=== PATIENT | male | born 1945 | race Caucasian/White ===

== ENCOUNTER 2016-06-07 08:13 | Observation (INO) | payer OTHER ==
--- NOTE | 2016-06-04 16:02 | DIAGNOSTIC IMAGING REPORT ---
TWO VIEW CHEST CLINICAL HISTORY: Atypical chest pain. FINDINGS: PA and lateral chest radiographs are compared to study dated 03/13/2013. The heart is top normal for projection. The mediastinal contour is within normal limits. The pulmonary vasculature is noncongested. There is left basilar atelectasis. The lungs and pleural spaces are otherwise clear. There is no pneumothorax. The bony thorax appears intact. Fusion hardware is noted in the lower cervical spine. IMPRESSION: Left basilar atelectasis with no acute cardiopulmonary abnormality. Electronically signed by: Terrell King M.D. 06/04/2016 4:00 PM Dictated Date/Time: 06/04/2016 3:59 PM
[2016-06-04 16:20] LABS: HEMATOCRIT 44.2 % (42-52); MEAN CELL VOLUME 91.3 fL (80-100); MEAN CORPUSCULAR HEMOGLOBIN 33.1 pg (25-34); MEAN CORPUSCULAR HGB CONC 36.2 g/dl (32-36); MEAN PLATELET VOLUME 9.9 fL (7.4-10.4); PLATELET COUNT 225 K/uL (130-400); RED BLOOD COUNT 4.84 M/uL (4.7-6.1)
[2016-06-04 16:27] LABS: PROTHROMBIN TIME (PATIENT) 10.5 SECONDS (9.0-12.0)
[2016-06-04 16:49] LABS: BLOOD UREA NITROGEN 17 mg/dl (7-18); BUN/CREATININE RATIO 13.2 (10-20); CALCIUM 9.2 mg/dl (8.5-10.1); CARBON DIOXIDE 23 mmol/L (21-32); CHLORIDE 106 mmol/L (98-107); GLUCOSE 101 mg/dl (70-99); POTASSIUM 4.2 mmol/L (3.5-5.1); SODIUM 139 mmol/L (136-145)
[~2016-06-07] VITALS: Ht 185.4 cm; Wt 120.2 kg
[2016-06-07] VITALS (8 sets, daily range): BP systolic 133–163; BP diastolic 74–90; PULSE 78–85; TEMP 36.5–36.7; O2SAT 93–97; Ht 185.4 cm; Wt 120.2 kg
[~2016-06-07 08:13] MED LIST: ASPEC325 PO; ASPI81TA28 PO; ATEN50TA8 PO; DIAZ-165 PO; FEXO1TAB49 PO; FLUT0.15; LISI-725 PO; MECL1TAB42 PO; METR0.754 TOP; MULT-506 PO; NTRGSL/4 UT; ONDA4TAB46 PO; SALI0.6510; TRAMTAB5 PO
[2016-06-07] MEDS ORDERED: HEPARIN SOD (PORCINE) 1000 UNIT/ML 10 ML VIAL ONE ×2 (09:03→10:34)
[2016-06-07] MEDS ORDERED: NiCARDipine HCL INJ 2.5 MG/ML 10 ML AMP ONE (09:03)
[2016-06-07] MEDS ORDERED: NITROGLYCERIN/D5W 100MCG/ML 20ML SYR ONE (09:04)
[2016-06-07] MEDS ORDERED: DiphenhydrAMINE HCL 50 MG/ML VIAL ONE (09:04)
[2016-06-07] MEDS ORDERED: FENTANYL CITRATE INJ 50 MCG/1 ML 2 ML VIAL ONE ×2 (09:04→11:00)
[2016-06-07] MEDS ORDERED: MIDAZOLAM HCL 1 MG/ML 2ML VIAL ONE ×2 (09:04→11:00)
[2016-06-07] MEDS ORDERED: METHYLPREDNISOLONE 125 MG VIAL ONE (09:17)
--- NOTE | 2016-06-07 09:38 | History & Physical Bridge Note ---
H&P Re-Evaluation Bridge Note: I have examined the patient, reviewed the History & Physical and in the interval since the performance of the History & Physical I have noted the following changes of clinical significance: No changes noted
--- NOTE | 2016-06-07 09:38 | Procedure Note ---
Pre-Mod Sedation Assessment General Date of Moderate Sedation: Jun 07, 2016. Vital Signs: Vital Signs Past 12 Hours Date Time Temp Pulse Resp B/P Pulse Ox O2 Delivery O2 Flow Rate FiO2 06/07/16 08:30 36.5 81 16 159/90 97 Room Air Review Cardiovascular: regular rate, rhythm, no murmur Abdomen: non tender, soft Lungs: lungs clear Pre-Sedation Airway Assessment Oral Cavity: Dentures Short Thick Neck: No Hx of Sleep Apnea: No Smoking Status: Never Smoker Procedure Planning Contraindications-for Mod Sed: None Yes Notes The planned sedation has been discussed with the patient and consent obtained. I have identified the patient, determined the appropriateness of sedation and have assessed the patient immediately prior to the procedure. All medicine(s) and interventions are by my order.
[2016-06-07] MEDS ORDERED: EPTIFIBATIDE 2 MG/ML 10 ML VIAL IV ONE ×2 (10:17)
[2016-06-07] MEDS ORDERED: EPTIFIBATIDE 0.75 MG/ML 75MG VIAL IV ONE (10:17)
--- NOTE | 2016-06-07 10:35 | Procedure Note ---
Post-Mod Sedation Assessment General Date of Moderate Sedation Jun 07, 2016. Vital Signs: Vital Signs Past 12 Hours Date Time Temp Pulse Resp B/P Pulse Ox O2 Delivery O2 Flow Rate FiO2 06/07/16 08:30 36.5 81 16 159/90 97 Room Air Review - Discharge Criteria Vital Signs Stable: Yes Alert/Oriented/Conversant: Yes Returned to Baseline Mental St: Yes Nausea Absent/Minimal: Yes Pain/Discomfort/Absent/Minimal: Yes Normal/Baseline Respirations: Yes Active Bleeding?: No
--- NOTE | 2016-06-07 10:46 | Cardiac Catheterization ---
Procedure Note Procedure Date Jun 07, 2016. Pre-Procedure Diagnosis Angina, Positive Stress Test AUC Score 9 Post-Procedure Diagnosis Severe CAD, Normal Intracardiac Pressures Procedure(s) Performed Coronary Angiography, Left Heart Cath Parts Counter Specialist Dr. Rucker [employer] Lab Technician(s) [place] Estimated Blood Loss < 20 ml Medication(s) Fentanyl, Heparin, Nicardipine, Versed, Lidocaine 1% Summary of Findings Coronary angiography: 1. Left main coronary artery: The LMCA is short. No significant CAD noted within the LM CA. 2. Left anterior descending: The LAD is large and wraps around the apex. Proximal LAD diffuse 30%. Mid LAD 40%. Small diagonal branch without significant CAD. 3. Circumflex: The circumflex is large and codominant. No significant CAD noted within the circumflex proper, small OM1, small OM2. There is a very large caliber OM3 with proximal 90% stenosis followed by diffuse 50% stenotic area. Circumflex PDA mid 40%. 4. Right coronary artery: The RCA is large and codominant. Proximal RCA 30%. RCA PDA and small caliber posterior lateral vessel without significant CAD. Left heart catheterization: 1. No left ventriculography performed. 2. No significant aortic stenosis. 3. Normal left ventricular end-diastolic pressure; 12 mmHg. Procedural notes: 1. Procedure performed via the right radial artery without complications. Impression: 1. Severe CAD involving large OM3 vessel. 2. Nonobstructive CAD involving proximal to mid LAD, circumflex PDA, and proximal RCA. 3. No aortic stenosis. 4. Normal LVEDP. Plan: 1. Interventional Cardiology to evaluate for PCI of large OM3. 2. Patient intolerant to statin therapy per records and PCP, Dr. Russo. Hemodynamics Rest Ao: 111/68 Final Ao: 115/66 LV: 108/3 LVEDP 12 mmHg Recommendations PCI without planned CABG Specimens None Radiation Exposure (mGy) 1354 mGy. Fluoro time 2.3 min. Contrast (mls) 80 ml Procedural Complication(s) None Disposition Metallographer Holding/Recovery ACC Data Cardiac Status Clinical evaluation leading to the procedure CAD Presntation: Stable angina, Positive Stress Test Anginal Classification: CCS III Heart Failure: No Cardiogenic Shock w/in 24Hrs: No Cardiac Arrest w/in 24Hrs: No Imaging studies past 6 months: No Stress studies past 6 months: Yes Standard Exercise Stress Test: Yes - Positive, Risk/Extent of Ischemia (High) Stress Echocardiogram: Yes - Positive, Risk/Extent of Ischemia (High) Stress Testing w/SPECT MPI: No Cardiac CTA: No Coronary Anatomy Dominant: Co-dominant Left Main (% Stenosis): Normal LAD (% Stenosis): Proximal (30%), Mid (40%) D1 (% Stenosis): Normal Circumflex (% Stenosis): Normal OM1 (% Stenosis): Normal OM2 (% Stenosis): Normal OM3 (% Stenosis): Proximal (90%), Mid (50%) L PDA (% Stenosis): Mid (40%) RCA (% Stenosis): Proximal (30%) R PDA (% Stenosis): Normal R PL1 (% Stenosis): Normal Left Ventricular Angiography EF (%): n/a Diagnostic Physician's Name: Jean-Claude Rucker MD Status: Elective Closure Device Percutaneous Entry Location: Radial Closure Device: Radial Band Recommendations: PCI without planned CABG
[2016-06-07] MEDS ORDERED: CLOPIDOGREL BISULFATE 300 MG TAB PO ONE (11:42)
[2016-06-07] MEDS ORDERED: NITROGLYCERIN 0.4 MG SL PER TAB CHARGE UT SCH (12:30)
[2016-06-07] MEDS ORDERED: ATROPINE SULFATE 0.1 MG/ML 5ML SYR IV PRN (12:30)
[2016-06-07] MEDS ORDERED: ACETAMINOPHEN 325 MG TAB PO PRN ×2 (12:30)
[2016-06-07] MEDS ORDERED: DIAZEPAM 5MG TAB PO PRN (12:30)
[2016-06-07] MEDS ORDERED: SODIUM CHLORIDE 0.65% NA SOLN 45 ML (OCEAN) PRN (12:30)
[2016-06-07] MEDS ORDERED: NITROGLYCERIN 0.4 MG SL PER TAB CHARGE SL PRN (12:30)
[2016-06-07] MEDS ORDERED: MAGNESIUM HYDROXIDE SUSP 30 ML UDC PO PRN (12:30)
[2016-06-07] MEDS ORDERED: EPTIFIBATIDE BOLUS / DRIP IV ONE (12:30)
[2016-06-07] MEDS ORDERED: POLYETHYLENE (MIRALAX) 17 GM PACK PO PRN (12:30)
[2016-06-07] MEDS ORDERED: FEXOFENADINE HCL 180 MG TAB PO PRN (12:30)
[2016-06-07] MEDS ORDERED: ONDANSETRON 4 MG TAB PO PRN (12:30)
[2016-06-07] MEDS ORDERED: FLUTICASONE PROPIONATE NA SPR 16 GM BTL PRN (12:30)
[2016-06-07] MEDS: SODIUM CHLORIDE 0.9% 1000ML 1,000 ML IV SCH ×2 (12:30→20:30)
--- NOTE | 2016-06-07 12:39 | Procedure Note ---
Post-Mod Sedation Assessment General Date of Moderate Sedation Jun 07, 2016. Vital Signs: Vital Signs Past 12 Hours Date Time Temp Pulse Resp B/P Pulse Ox O2 Delivery O2 Flow Rate FiO2 06/07/16 12:30 80 18 130/85 94 Room Air 06/07/16 12:15 81 16 135/82 95 Room Air 06/07/16 12:00 80 16 138/95 95 Room Air 06/07/16 08:30 36.5 81 16 159/90 97 Room Air Review - Discharge Criteria Vital Signs Stable: Yes Alert/Oriented/Conversant: Yes Returned to Baseline Mental St: Yes Nausea Absent/Minimal: Yes Pain/Discomfort/Absent/Minimal: Yes Normal/Baseline Respirations: Yes Active Bleeding?: No Pt Received D/C Instructions: N/A Prescriptions Given: None Specific Proced. D/C Criteria Distal Pulses Present (Cardiac: Yes Groin site assessed-Card Cath: N/A Voided Prior To Discharge: N/A Discharged Patients Adult Escort/Transportation: N/A
--- NOTE | 2016-06-07 13:02 | Cardiac Catheterization ---
Procedure Note Procedure Date Jun 07, 2016. Pre-Procedure Diagnosis Angina, Positive Stress Test, CAD AUC Score 9 Post-Procedure Diagnosis Successful PCI Procedure(s) Performed Left Heart Cath, Drug Eluting Stent Sed Special Education Teacher Dr. Schumacher Senior Product Development Scientist(s) MANISHA Huitron Estimated Blood Loss 40 ml Medication(s) Clopidogrel (600 mg PO post PCI), Fentanyl, Heparin, Integrilin, Nicardipine ( intra-arterial and intracoronary), Versed, Lidocaine 1% Recommendations Medical therapy and/or Counseling, PCI without planned CABG Specimens None Radiation Exposure (mGy) Total of 6,624 for both diagnostic and PCI procedures Contrast (mls) Total of 330 ml Optiray for both procedures Fluids (cc crystalloids) Total of 200 ml for both procedures Drains None Anesthesia IV versed,fentanyl. Lidocaine 1% for local Procedural Complication(s) None Disposition PCU ACC Data Cardiac Status Clinical evaluation leading to the procedure CAD Presntation: Stable angina, Positive Stress Test Anginal Classification: CCS III Heart Failure: No Cardiogenic Shock w/in 24Hrs: No Cardiac Arrest w/in 24Hrs: No Imaging studies past 6 months: Yes Standard Exercise Stress Test: Yes - Positive, Risk/Extent of Ischemia (High) Stress Echocardiogram: Yes - Positive, Risk/Extent of Ischemia (High) Stress Testing w/SPECT MPI: No Cardiac CTA: No Coronary Anatomy Dominant: Co-dominant (For coronary artery description,please see diagnostic report by Dr. Rucker) Diagnostic Physician's Name: Jean-Claude Rucker MD Status: Elective Closure Device Percutaneous Entry Location: Radial Closure Device: Radial Band Recommendations: Medical therapy and/or Counseling, PCI without planned CABG PCI Indication: Stable Angina, Angina despite med therapy, + Stress Test Lesion Segment Name: Proxiaml left circumflex marginal Culprit Artery: Yes Stenosis Prior to Rx (%): 90-95 Chronic Total Occlusion: No IVUS: No FFR: No Pre-Procedure ROXANA Flow: 3 Previously Treated Lesion: No Lesion Complexity: Non-High/Non-C Lesion Length (mm): 9 Thrombus Present: No Bifurcation Lesion: No Guidewire Across Lesion: Yes Guidewire: Stenosis Post-Procedure (%): 0-10 Post-Procedure ROXANA Flow: 3 Device(s) Deployed: Yes Type of Device(s): Medtronic Resolute Integrity 3 X 15 mm RAMEZ Lesion #2 Segment Name: Mid left circumflex marginal Culprit Artery: Yes Stenosis Prior to Rx (%): 70 Chronic Total Occlusion: No IVUS: No FFR: No Pre-Procedure ROXANA Flow: 3 Lesion Complexity: Non-High/Non-C Lesion Length (mm): 6 Thrombus Present: No Bifurcation Lesion: No Guidewire Across Lesion: Yes Guidewire: Stenosis Post-Procedure (%): 0-10 Post-Procedure ROXANA Flow: 3 Device(s) Deployed: Yes (Danfoss IXA Sensor Technologiestronic Resolute Integrity 3 X 9 mm RAMEZ. Deployed in an overlapping fashion with first stent.) Intraprocedure Events Significant Dissection: No Perforation: No
[2016-06-07 13:37] LABS: HEMATOCRIT 44.7 % (42-52); MEAN CELL VOLUME 91.4 fL (80-100); MEAN CORPUSCULAR HEMOGLOBIN 32.9 pg (25-34); RED BLOOD COUNT 4.89 M/uL (4.7-6.1); WHITE BLOOD COUNT 17.91 K/uL (4.8-10.8)
[2016-06-07] MEDS ORDERED: IV FLUIDS COMPLETED PRN (13:45)
[2016-06-07 13:58] LABS: MEAN PLATELET VOLUME 9.9 fL (7.4-10.4); PLATELET COUNT 98 K/uL (130-400)
[2016-06-07 13:59] LABS: BASO % 0.1 %; BASO ABS # 0.01 K/uL (0-0.2); COMPLETE YES; IG% 0.4 %; LYMPH % 5.6 %; LYMPH ABS # 1.01 K/uL (1.2-3.4); MONO % 0.3 %; NEUT % 93.6 %; PLT ESTIMATE DECREASED
[2016-06-07] MEDS ORDERED: NURSING VERBAL MED ORDER ONE (16:15)
[2016-06-07] MEDS: TRAMADOL/ACETAMINOPHEN 37.5/325MG TAB PO PRN (17:42)
[2016-06-07] MEDS: ALUMINUM/MAGNESIUM/SIMETH (MAALOX MAX) 30 ML UDC PO PRN (19:52)
[2016-06-07] MEDS ORDERED: LISINOPRIL 20 MG TAB PO STA (21:12)
[2016-06-07] MEDS ORDERED: ASPIRIN 81 MG ECTAB PO STA (21:12)
[2016-06-07] MEDS ORDERED: RANITIDINE HCL 150 MG TAB PO STA (21:12)
[2016-06-08 03:44] VITALS: BP 130/73; PULSE 70; TEMP 36.8; O2SAT 93
[2016-06-08 04:00] VITALS: O2SAT 93
[2016-06-08] MEDS: SODIUM CHLORIDE 0.9% 1000ML 1,000 ML IV SCH (04:12)
[2016-06-08 07:23] LABS: BASO % 0.1 %; BASO ABS # 0.02 K/uL (0-0.2); COMPLETE YES; EOS % 0.2 %; HEMATOCRIT 39.9 % (42-52); IG% 0.4 %; LYMPH % 11.8 %; LYMPH ABS # 2.24 K/uL (1.2-3.4); MEAN CELL VOLUME 92.1 fL (80-100); MEAN CORPUSCULAR HEMOGLOBIN 33.5 pg (25-34); MEAN CORPUSCULAR HGB CONC 36.3 g/dl (32-36); MONO % 6.2 %; NEUT % 81.3 %; PLATELET COUNT 165 K/uL (130-400); RED BLOOD COUNT 4.33 M/uL (4.7-6.1); WHITE BLOOD COUNT 19.02 K/uL (4.8-10.8)
[2016-06-08] MEDS: ALUMINUM/MAGNESIUM/SIMETH (MAALOX MAX) 30 ML UDC PO PRN (07:23)
[2016-06-08 07:33] LABS: BUN/CREATININE RATIO 16.2 (10-20); CALCIUM 8.6 mg/dl (8.5-10.1); CREATININE 1.1 mg/dl (0.60-1.40); POTASSIUM 4.5 mmol/L (3.5-5.1)
[2016-06-08 08:17] VITALS: BP 134/83; PULSE 76; TEMP 36.7; O2SAT 97
[2016-06-08] MEDS ORDERED: CLOPIDOGREL BISULFATE 75 MG TAB PO SCH (09:00)
[2016-06-08] MEDS ORDERED: LISINOPRIL 20 MG TAB PO SCH (09:00)
[2016-06-08] MEDS ORDERED: MECLIZINE HCL 25 MG TAB PO PRN (09:00)
[2016-06-08] MEDS ORDERED: ASPIRIN 81 MG ECTAB PO SCH ×2 (09:00)
--- NOTE | 2016-06-08 10:11 | Discharge Instructions ---
Discharge Instructions Visit Reason for Visit: Cardiac catheterization for angina and abnormal stress echo. Discharge Discharge Diagnosis / Problem: Severe coronary artery disease. Stents placed in obtuse marginal 3 vessel. Discharge Goals Goal(s): Diagnostic testing, Therapeutic intervention Activity Recommendations Activity Limitations: per Instructions/Follow-up section Anesthesia . Post Anesthesia Instructions: If you have had General Anesthesia or IV Sedation: * Do not drive today. * Resume driving when surgeon permits. * Do not make important decisions or sign legal documents today. * Call surgeon for: 1. Temperature elevations greater than 101 degrees F. 2. Uncontrollable pain. 3. Excessive bleeding. 4. Persistent nausea and vomiting. 5. Medication intolerance (nausea, vomiting or rash). * For nausea and vomiting use only clear liquids such as: tea, soda, bouillon until nausea subsides, then gradually increase diet as tolerated. * If you have any concerns or questions, call your surgeon's office. If physician is unavailable and it is an emergency, call 911 or go to the nearest emergency room. . Instructions / Follow-Up Instructions / Follow-Up Follow up appointment: 1. Dr. Rucker (cardiology clinic) on Tuesday, June 30, 2016 at 0915 AM. Please be there 15 minutes early to review medications and history with nursing staff. ACTIVITY RECOMMENDATIONS: Excess manipulation of the wrist should be avoided for the next 24-48 hours. * No lifting over 2 pounds (approximately a 1/2 gallon of milk) with the utilized arm for 24 hours. * No strenuous activity such as bowling or tennis for 3 days. * Keep the site of the procedure covered with a bandage for 24 hours. *You may shower the day after the procedure. Do not take a tub bath or submerge the puncture site in water for the next 3 days. *Do not operate any motorized equipment for 3 days. SPECIAL CARE INSTRUCTIONS: The site may be slightly bruised and sore following your procedure. Should any of the following occur, contact the DrFarhad who performed your procedure. 1. Redness/inflammation, swelling, chills, or fever, or colored drainage at procedure site within 3-7 days after your procedure. 2. Coldness, discoloration, ongoing numbness, severe pain, or swelling. Expect mild tingling of hand and tenderness at the puncture site for up to three days. If this persists beyond three days, or other symptoms develop, notify the Dr. who performed your procedure. BLEEDING: If the procedure site on your wrist begins to bleed, do not panic 1. Place 1 or 2 fingers firmly just slightly above the insertion site to stop the bleeding. You may be able to feel your pulse as you hold pressure. 2. Lift your finger after 5 minutes to see if the bleeding has stopped. 3. Once the bleeding has stopped, gently wipe the wrist area clean with a bandage. * If the bleeding from your wrist does not stop after 10 minutes, or if there is a large amount of bleeding or spurting, call 911 (do not drive yourself to the hospital). SKIN IRRITATION: * You may experience some redness and/or swelling in the area where radiation was administered. If any skin irritation occurs, please contact your family physician. FOLLOW UP VISIT: Keep any scheduled doctor appointments. Diet Recommendations Recommended Home Diet: low cholesterol Procedures Procedures Performed: Coronary angiography and PCI (stent placement). Pending Studies Studies pending at discharge: no Medical Emergencies . Who to Call and When: Medical Emergencies: If at any time you feel your situation is an emergency, please call 911 immediately. . Non-Emergent Contact Non-Emergency issues call your: Zumba Instructor . Past History Medical & Surgical History: (1) CAD (coronary artery disease), [place] coronary artery (2) S/P coronary artery stent placement . "Provider Documentation" section prepared by Jean-Claude Nava.
[2016-06-08] MEDS ORDERED: PLV75 PO (10:14)
[2016-06-08 10:17] VITALS: BP 134/83; PULSE 76; TEMP 36.7; O2SAT 97
[2016-06-08] MEDS: TRAMADOL/ACETAMINOPHEN 37.5/325MG TAB PO PRN (10:44)
--- NOTE | 2016-06-08 13:53 | DISCHARGE SUMMARY ---
TIME: 12:32 p.m. DATE OF OBSERVATION: 06/07/2016 DATE OF DISCHARGE: 06/08/2016 ADMITTING DIAGNOSES: 1. Abnormal stress echo. 2. Angina. DISCHARGE DIAGNOSIS: Severe coronary artery disease, status post percutaneous coronary intervention of OM3. BRIEF HISTORY OF PRESENT ILLNESS: Mr. Lou is a 70-year-old gentleman who had an abnormal stress echo, which was ordered for anginal symptoms by his PCP Dr. Russo. He presented to [facility] on 06/07/2016 for cardiac catheterization. BRIEF HOSPITAL COURSE: Coronary angiography demonstrated severe OM3 stenosis of approximately 90%-95%. He underwent stent placement in the proximal OM3 with 3 x 15 mm Resolute drug-eluting stent. In the mid OM3 he underwent 3 x9 mm Resolute drug-eluting stent in an overlapping fashion with the proximal stent. He tolerated the procedure well. He was admitted for overnight observation. He did develop thrombocytopenia when his platelet level dropped from 225 down to 98 while on Integrilin after a short period of time. Integrilin was promptly discontinued by Dr. Schumacher, the director of restaurants. His platelet count recovered up to 165 the morning of discharge. He did develop leukocytosis throughout his hospital stay as he was treated with prednisone prior to the procedure and Solu-Medrol at the onset of the procedure due to an IV CONTRAST DYE ALLERGY. He complained of left axillary pain both overnight and in the morning. It was present for several hours and he had normal ECG without ST or T-wave changes. It did not worsen with exertion and appeared to be positional. If he lifted his left arm over his head, the pain improved or resolved. When he lay on his right side, the pain resolved. It returned when laying on his left side. He had no further anginal symptoms. He denied shortness of breath, syncope, near syncope, palpitations or bleeding. PHYSICAL EXAMINATION: VITAL SIGNS: On the day of discharge demonstrated a temperature of 36.7 degrees, heart rate 76 beats per minute, respiration rate 18, blood pressure 134/83 mmHg and oxygen saturation 97% on room air. GENERAL: In no acute distress. Alert and oriented. NECK: No JVD. CARDIAC EXAMINATION: No ventricular heave. Regular. Normal S1 and S2. No audible murmurs, rubs or gallops. LUNGS: Clear to auscultation bilaterally without wheezes, rales or rhonchi. ABDOMEN: Soft, nontender, nondistended. Normoactive bowel sounds. EXTREMITIES: Right radial cath site is clean, dry and intact without erythema or discharge. 2+ right radial pulse. Trace bilateral lower extremity edema. No cyanosis. PSYCHIATRIC: Affect appears appropriate. LABORATORY DATA: Demonstrated a WBC of 19, hemoglobin 14.5, platelets 165. Sodium 140, potassium 4.5, BUN 18, creatinine 1.1, glucose 119. Telemetry was personally reviewed. No arrhythmia. ECG personally reviewed, performed at 10:12 a.m. on 06/08/2016, normal sinus rhythm at 68 beats per minute. No significant ST/T-wave abnormality. MEDICATIONS: At the time of discharge include 1. Aspirin 81 mg daily. 2. Plavix 75 mg daily. 3. Atenolol 50 mg daily. 4. Lisinopril 20 mg daily. 5. Nitroglycerin 0.4 mg sublingual p.r.n. angina. 6. Zofran p.r.n. 7. Fluticasone nasal spray p.r.n. 8. Valium 5 mg q. 4 hours as needed for anxiety (home medication). 9. Nadiya p.r.n. 10. Meclizine p.r.n. 11. Topical metronidazole p.r.n. FOLLOWUP APPOINTMENTS: 1. Cardiology followup is scheduled for June 30 at 09:[address] Rucker. This day was provided to him. PRESCRIPTIONS: A prescription for Plavix was sent to his pharmacy and he was notified of this. He was made aware to remain on aspirin 81 mg daily indefinitely and Plavix for at least 6 months, but preferably a year or longer. ASSESSMENT AND PLAN: 1. Coronary artery disease, status post OM3 percutaneous coronary intervention: No further angina. Continue antiplatelet therapy as described above. He is statin intolerant despite several doses of multiple medications in the past as per Dr. Russo. Recommend Mediterranean diet. Continue beta-lorraine and LEVI inhibitor. 2. Left axillary pain: Not consistent with ischemic heart disease. Appears to be somewhat positional. There was also some concern for acid reflux overnight. He plans on obtaining Prilosec OTC as instructed by his primary care physician, Dr. Russo. 3. Hypertension: Blood pressure acceptable. Continue outpatient regimen. 4. Disposition: Followup as noted above.
== END 2016-06-08 10:56 | disposition home or self-care (01) ==
LOC: C.CATH 08:13 → C.2T 12:37
PROVIDERS: ADMIT Internal Medicine Cardiovascular Disease; ATTEND Internal Medicine Cardiovascular Disease
DX: I25.10 Atherosclerotic heart disease of native coronary artery without angina pectoris (principal); I10 Essential (primary) hypertension; E78.00 Pure hypercholesterolemia, unspecified; F17.210 Nicotine dependence, cigarettes, uncomplicated; D69.6 Thrombocytopenia, unspecified; K21.9 Gastro-esophageal reflux disease without esophagitis; R90.81 Abnormal echoencephalogram; Z82.49 Family history of ischemic heart disease and other diseases of the circulatory system; Z83.3 Family history of diabetes mellitus; Z80.42 Family history of malignant neoplasm of prostate; Z79.82 Long term (current) use of aspirin; Z79.899 Other long term (current) drug therapy
CPT/HCPCS: 93458; C9600

== ENCOUNTER → 2016-11-15 | Outpatient (CLI) | payer OTHER ==
[~2016-11-15] MED LIST changes: -ASPEC325 PO; -MULT-506 PO; +OXYC-57 PO; +PLV75 PO; +PRED50TA PO
[2016-11-15 10:07] LABS: BASO % 0.5 %; BASO ABS # 0.03 K/uL (0-0.2); COMPLETE YES; EOS % 6.3 %; HEMATOCRIT 43.4 % (42-52); IG% 0.4 %; LYMPH % 34.6 %; LYMPH ABS # 1.92 K/uL (1.2-3.4); MEAN CELL VOLUME 93.9 fL (80-100); MEAN CORPUSCULAR HEMOGLOBIN 33.3 pg (25-34); MEAN CORPUSCULAR HGB CONC 35.5 g/dl (32-36); MEAN PLATELET VOLUME 9.5 fL (7.4-10.4); MONO % 7.9 %; NEUT % 50.3 %; PLATELET COUNT 202 K/uL (130-400); RED BLOOD COUNT 4.62 M/uL (4.7-6.1); WHITE BLOOD COUNT 5.55 K/uL (4.8-10.8)
[2016-11-15 10:38] LABS: BLOOD UREA NITROGEN 16 mg/dl (7-18); BUN/CREATININE RATIO 14.1 (10-20); CALCIUM 9.1 mg/dl (8.5-10.1); CARBON DIOXIDE 28 mmol/L (21-32); CHLORIDE 110 mmol/L (98-107); CHOLESTEROL 182 mg/dl (0-200); GLUCOSE 99 mg/dl (70-99); POTASSIUM 4.8 mmol/L (3.5-5.1); SODIUM 142 mmol/L (136-145); TRIGLYCERIDES 135 mg/dl (0-150); URIC ACID 6.9 mg/dl (2.6-7.2); VERY LOW DENSITY LIPOPROT CALC 27 mg/dl
[2016-11-15 10:48] LABS: CHOLESTEROL/HDL RATIO 6.1; HDL CHOLESTEROL 30 mg/dl; LDL CHOLESTEROL CALCULATED 125 mg/dl
[2016-11-15 13:19] LABS: ESTIMATED AVERAGE GLUCOSE 117 mg/dl; HA1C FLAG Normal (Normal)
--- NOTE | 2016-11-19 13:11 | CODING QUERY MEDICAL NECESSITY ---
SUPPORTING DIAGNOSIS NEEDED Dr. Russo, A supporting diagnosis is required for the test/procedure performed on this patient in order for us to be reimbursed by the patient's insurance. Please provide a supporting diagnosis for the following test/procedure listed below next to the test name along with your signature. *If there is no additional diagnosis for this patient that would support the following test/procedure please document that below next to the test/procedure. Test(s)/Procedure(s) that require a supporting diagnosis: * 10638 GLYCATED HEMOGLOBIN DIAGNOSIS: * 24103 PSA DIAGNOSIS: DATE OF SERVICE: 11/15/16 Provider Signature: Date: Thank you Syed Bennett [facility] Once completed, please kindly fax back to [phone] For questions please call [phone]
== END | disposition home or self-care (01) ==
LOC: C.LAB 09:28
PROVIDERS: ATTEND Internal Medicine
DX: Z00.00 Encounter for general adult medical examination without abnormal findings (principal); E78.00 Pure hypercholesterolemia, unspecified

== ENCOUNTER 2017-01-23 10:16 | Emergency (ER) | payer OTHER ==
[~2017-01-23] VITALS: Ht 182.9 cm; Wt 121.5 kg
[~2017-01-23 10:16] MED LIST changes: -OXYC-57 PO; -PRED50TA PO
[2017-01-23 10:35] VITALS: TEMP 36.9; Ht 182.9 cm; Wt 121.5 kg
[2017-01-23 11:39] LABS: BASO % 0.5 %; BASO ABS # 0.03 K/uL (0-0.2); COMPLETE YES; EOS % 8.3 %; IG% 0.4 %; LYMPH % 31.4 %; LYMPH ABS # 1.74 K/uL (1.2-3.4); MEAN CELL VOLUME 93.3 fL (80-100); MEAN CORPUSCULAR HEMOGLOBIN 32.5 pg (25-34); MEAN CORPUSCULAR HGB CONC 34.9 g/dl (32-36); MEAN PLATELET VOLUME 9.5 fL (7.4-10.4); MONO % 11.6 %; NEUT % 47.8 %; PLATELET COUNT 176 K/uL (130-400); RED BLOOD COUNT 4.61 M/uL (4.7-6.1); WHITE BLOOD COUNT 5.54 K/uL (4.8-10.8)
--- NOTE | 2017-01-23 11:42 | EMERGENCY ROOM VISIT NOTE ---
History First contact with patient: 11:02 Chief Complaint: KNEEPAIN Stated Complaint: REDNESS,EDEMA,PAIN IN R KNEE X1 WEEK History of Present Illness The patient is a 71 year old male who presents to the Emergency Room with complaints of right knee pain and swelling that has gotten progressively worse over the last week. The patient denies any injury. He denies any fever or chills. He does note that the knee feels hot. He has not taken anything for pain. The pain is worse with weightbearing. He denies any known insect bites, but [place] in [place] He also has a history of gout. He usually gets gout in his big toe. Review of Systems 10 system review performed and negative unless noted in HPI or below Past Medical/Surgical History Medical Problems: (1) CAD (coronary artery disease), [place] coronary artery Surgical Problems: (1) S/P coronary artery stent placement Social History Smoking Status: Never Smoker Marital Status: Housing Status: lives with significant other Current/Historical Medications Scheduled Aspirin (Aspirin Ec), 81 MG PO HS Atenolol (Tenormin), 50 MG PO HS Clopidogrel Bisulfate (Clopidogrel), 75 MG PO QAM Lisinopril (Zestril), 20 MG PO DAILY Metronidazole (Topical) (Metrocream), 1 APPLN TOP DAILY Nitroglycerin (Nitrostat), 0.4 MG UT PRN Prednisone (Prednisone), 50 MG PO DAILY Scheduled PRN Fexofenadine Hcl (Nadiya Allergy), 1 TAB PO DAILY PRN for ALLERGIC REACTION Fluticasone Propionate (Nasal) (Flonase Allergy Relief), for ALLERGIC REACTION Meclizine Hcl (Meclizine Hcl), 1 TAB PO TID PRN for Documentation Oxycodone/Acetaminophen 5MG/325MG (Percocet 5MG/325MG), 1-2 TABS PO Q4H PRN for Pain Tramadol/Acetaminophen (Ultracet), 1 TAB PO Q6H PRN for Pain Miscellaneous Medications Saline (Jerauld Nasal [place]) Physical Exam Vital Signs Date Time Temp Pulse Resp B/P (MAP) Pulse Ox O2 Delivery O2 Flow Rate FiO2 01/23/17 13:53 53 18 147/95 94 Room Air 01/23/17 10:35 36.9 57 18 147/95 99 Room Air Physical Exam VITALS: Vitals are noted on the nurse's note and reviewed by myself. Vital signs stable. GENERAL: 71-year-old male, in no acute distress, nondiaphoretic, well-developed well-nourished. SKIN: The skin was without rashes HEAD: Normocephalic atraumatic. MUSCULOSKELETAL: RLE: Significant swelling noted over the right knee. Warmth also noted. No erythema. The skin is intact. Full range of motion. No ligamentous instability appreciated. Distal pulses intact. No pain in the calf. NEURO: Patient was alert and oriented to person place and time. Normal sensation to touch. No focal neurological deficits. Medical Decision & Procedures ER Provider Diagnostic Interpretation: Right knee x-ray IMPRESSION: Possible fracture at the base of the prominent enthesophyte at the origin of the patellar tendon. Correlate for point tenderness. CT RLE IMPRESSION: Findings suggestive of old fragmentation/old fracture of the prominent enthesophyte at the origin of the patellar tendon. Prepatellar infiltration and laminar fluid could suggest prepatellar bursitis. Laboratory Results 01/23/17 11:25 Red Blood Count 4.61, Mean Corpuscular Volume 93.3, Mean Corpuscular Hemoglobin 32.5, Mean Corpuscular Hemoglobin Concent 34.9, Mean Platelet Volume 9.5, Neutrophils (%) (Auto) 47.8, Lymphocytes (%) (Auto) 31.4, Monocytes (%) (Auto) 11.6, Eosinophils (%) (Auto) 8.3, Basophils (%) (Auto) 0.5, Neutrophils # (Auto ) 2.65, Lymphocytes # (Auto) 1.74, Monocytes # (Auto) 0.64, Eosinophils # (Auto ) 0.46, Basophils # (Auto) 0.03 01/23/17 11:25 Test 01/23/17 11:25 White Blood Count 5.54 K/uL (4.8-10.8) Red Blood Count 4.61 M/uL (4.7-6.1) Hemoglobin 15.0 g/dL (14.0-18.0) Hematocrit 43.0 % (42-52) Mean Corpuscular Volume 93.3 fL (80-100) Mean Corpuscular Hemoglobin 32.5 pg (25-34) Mean Corpuscular Hemoglobin Concent 34.9 g/dl (32-36) Platelet Count 176 K/uL (130-400) Mean Platelet Volume 9.5 fL (7.4-10.4) Neutrophils (%) (Auto) 47.8 % Lymphocytes (%) (Auto) 31.4 % Monocytes (%) (Auto) 11.6 % Eosinophils (%) (Auto) 8.3 % Basophils (%) (Auto) 0.5 % Neutrophils # (Auto) 2.65 K/uL (1.4-6.5) Lymphocytes # (Auto) 1.74 K/uL (1.2-3.4) Monocytes # (Auto) 0.64 K/uL (0.11-0.59) Eosinophils # (Auto) 0.46 K/uL (0-0.5) Basophils # (Auto) 0.03 K/uL (0-0.2) RDW Standard Deviation 43.7 fL (36.4-46.3) RDW Coefficient of Variation 12.8 % (11.5-14.5) Immature Granulocyte % (Auto) 0.4 % Immature Granulocyte # (Auto) 0.02 K/uL (0.00-0.02) Erythrocyte Sedimentation Rate 4 mm/hr (0-14) Anion Gap 6.0 mmol/L (3-11) Est Creatinine Clear Calc Drug Dose 93.8 ml/min Estimated GFR () 88.6 Estimated GFR (Non- 76.5 BUN/Creatinine Ratio 15.1 (10-20) Uric Acid 7.2 mg/dl (2.6-7.2) Calcium Level 9.2 mg/dl (8.5-10.1) Total Bilirubin 0.4 mg/dl (0.2-1) Aspartate Amino Transf (AST/SGOT) 21 U/L (15-37) Alanine Aminotransferase (ALT/SGPT) 29 U/L (12-78) Alkaline Phosphatase 90 U/L (45-117) C-Reactive Protein 0.53 mg/dl (0-0.29) Total Protein 7.2 gm/dl (6.4-8.2) Albumin 3.7 gm/dl (3.4-5.0) Globulin 3.5 gm/dl (2.5-4.0) Albumin/Globulin Ratio 1.1 (0.9-2) Lyme Disease IgG Antibody NEG (NEG) Lyme Disease IgM Antibody NEG (NEG) Medications Administered Medications (Trade) Dose Ordered Sig/Jordan Route Start Time Stop Time Status Last Admin Dose Admin Prednisone (PredniSONE TAB) 60 mg NOW STAT PO 01/23/17 13:44 01/23/17 13:45 DC 01/23/17 13:53 60 MG ED Course Patient was seen and examined Vital signs including blood pressure were reviewed medications list was verified with patient Labs were obtained, and a saline lock was established The patient declined pain medication. Imaging was performed and reviewed. The findings were discussed with patient. He voiced understanding. The patient was also seen by my supervising physician, Dr. Shirley I reviewed discharge instructions the patient. They voiced understanding and had no further questions. Medical Decision Differential diagnosis: Septic knee, disseminated Lyme disease, hemarthrosis, ligamentous injury, traumatic bursitis, gout, This patient is a 71-year-old male that presented to the emergency department with complaints of right knee swelling and pain. He had no feverish symptoms. No trauma. X-ray showed a possible fracture at the insertion of the patellar tendon. For this reason, CT was ordered. CT is consistent with bursitis. I do not suspect an infectious etiology as the patient is afebrile with no leukocytosis. The patient denies any injury. The patient does have a history of gout. It is possible that this is a gouty bursitis. The patient was treated with steroids. He was also given a short course of narcotics. The patient was instructed to follow-up with orthopedics. This chart was completed in part utilizing [employer] Speech Voice Recognition software. Attempts were made to minimize the grammatical errors, random word insertions, pronoun errors and incomplete sentences. Any formal questions or concerns about the content, text or information contained within the body of this dictation should be directly addressed to the provider for clarification. Medication Reconcilliation Current Medication List: was personally reviewed by me Blood Pressure Screening Patient's blood pressure: Elevated blood pressure Blood pressure disposition: Did not require urgent referral Impression Primary Impression: Bursitis Departure Information Dispostion Home / Self-Care Condition GOOD Prescriptions Oxycodone/Acetaminophen 5MG/325MG (PERCOCET 5MG/325MG) Tab 1-2 TABS PO Q4H Y for Pain, #15 TAB For Initial Treatment Prov: Rafia Davis PA-C 01/23/17 Prednisone (Prednisone) 50 Mg Tab 50 MG PO DAILY for 4 Days, #4 TAB Prov: Rafia Davis PA-C 01/23/17 Referrals Cedrick Russo M.D. (PCP) Patient Instructions Bursitis, My [facility] Additional Instructions You had been treated in the emergency department for right knee pain and swelling. It appears that you have a bursitis that was noted on the CAT scan. Please take the entire course of prednisone. Take this medication with food. Ibuprofen 600 mg every 6 hours Percocet 1-2 tabs every 4 hours for severe pain. Do not drink alcohol or drive while taking this medication. This may be taken with ibuprofen, but avoid Tylenol. This may cause constipation. Please take a stool softener while on Percocet. Please call the orthopedic doctor tomorrow for a follow-up appointment Please watch for worsening symptoms such as increased redness, swelling, pain or fever. Please return to the emergency department if any of these occur.
--- NOTE | 2017-01-23 11:50 | DIAGNOSTIC IMAGING REPORT ---
R KNEE 3 VIEWS CLINICAL HISTORY: 71 years-old Male presenting with R knee swelling no injury. TECHNIQUE: Frontal, lateral, and sunrise views of the right knee were obtained. COMPARISON: None. FINDINGS: Tricompartmental degenerative change. Prominent enthesophytes at the insertion of the quadriceps tendon and origin of the patellar tendon. Irregularity and possible fracture of the base of the patellar enthesophyte noted at the inferior pole the patella. No other acute fracture. No malalignment. No patellar subluxation. No large knee joint effusion. IMPRESSION: Possible fracture at the base of the prominent enthesophyte at the origin of the patellar tendon. Correlate for point tenderness. Electronically signed by: Robin Bhandari M.D. 01/23/2017 11:49 AM Dictated Date/Time: 01/23/2017 11:44 AM
[2017-01-23 12:02] LABS: BUN/CREATININE RATIO 15.1 (10-20); C-REACTIVE PROTEIN 0.53 mg/dl (0-0.29); CALCIUM 9.2 mg/dl (8.5-10.1); POTASSIUM 4.3 mmol/L (3.5-5.1); URIC ACID 7.2 mg/dl (2.6-7.2)
[2017-01-23 12:03] LABS: ALB/GLOB RATIO 1.1 (0.9-2)
[2017-01-23 12:44] LABS: LYME DISEASE AB IGG NEG (NEG)
[2017-01-23 12:45] LABS: LYME DISEASE AB IGM NEG (NEG)
--- NOTE | 2017-01-23 13:23 | EMERGENCY ROOM VISIT NOTE ---
ED Visit Note First contact with patient: 11:02 71-year-old male with right knee pain was fully evaluated by Rafia Davis PA-C. Please see her note. I also independently evaluated the patient. Imaging studies were performed.
--- NOTE | 2017-01-23 13:34 | DIAGNOSTIC IMAGING REPORT ---
R LOWER EXTREMITY WITHOUT CLINICAL HISTORY: 71 years-old Male presenting with ? fx at the insertion of the patellar tendon. TECHNIQUE: Multidetector CT of the right knee was performed without the use of intravenous contrast. IV contrast: None. A dose lowering technique was used consistent with the principles of ALARA (as low as reasonably achievable). COMPARISON: Plain radiograph performed earlier the same day. CT DOSE (mGy.cm): The estimated cumulative dose is 206.81 mGy.cm. FINDINGS: Rn Case Manager topogram: Unremarkable. Fragmentation of the prominent enthesophyte at the origin of the patellar tendon. There is suggestion of smooth sclerotic margins suggesting old fracture. Prepatellar soft tissue infiltration and laminar fluid noted. Patellar tendon grossly intact within limitations of CT. No acute fracture. Mild degenerative changes at the knee joint. Joint space preserved. No effusion. Soft tissues of the knee grossly intact. IMPRESSION: Findings suggestive of old fragmentation/old fracture of the prominent enthesophyte at the origin of the patellar tendon. Prepatellar infiltration and laminar fluid could suggest prepatellar bursitis. Electronically signed by: Robin Bhandari M.D. 01/23/2017 1:32 PM Dictated Date/Time: 01/23/2017 1:27 PM
[2017-01-23] MEDS ORDERED: PRED50TA PO (13:45)
[2017-01-23] MEDS ORDERED: OXYC-57 PO (13:45)
[2017-01-23 13:53] VITALS: BP 147/95; PULSE 53; O2SAT 94
== END 2017-01-23 14:00 | disposition home or self-care (01) ==
LOC: C.EDB 10:17 → C.EDD 14:00
DX: M71.161 Other infective bursitis, right knee (principal); I25.10 Atherosclerotic heart disease of native coronary artery without angina pectoris; Z98.61 Coronary angioplasty status; Z79.82 Long term (current) use of aspirin; Z79.899 Other long term (current) drug therapy